=== PATIENT | female | born 1930 | race Caucasian/White ===

== ENCOUNTER 2016-09-30 13:43 | Inpatient (IN) | payer OTHER ==
[~2016-09-30] VITALS: Ht 154.9 cm; Wt 62.6 kg
[2016-09-30] MEDS ORDERED: HYDR12.55 PO (14:40)
[2016-09-30] MEDS ORDERED: PRVC/40 PO (14:40)
[2016-09-30] MEDS ORDERED: BRIM0.2S18 OPB (14:40)
[2016-09-30] MEDS ORDERED: LATA0.009 OPB (14:40)
[2016-09-30] MEDS ORDERED: TIMO0.5S35 OPB (14:40)
[2016-09-30] MEDS ORDERED: CARV25TA2 PO (14:40)
[2016-09-30] MEDS ORDERED: SODIUM CHLORIDE 0.9% 1000ML 1,000 ML IV STA (15:02)
--- NOTE | 2016-09-30 15:24 | DIAGNOSTIC IMAGING REPORT ---
CHEST ONE VIEW PORTABLE CLINICAL HISTORY: Weakness COMPARISON STUDY: No previous studies for comparison. FINDINGS: The heart is enlarged. There is aortic tortuosity. There are right basilar airspace opacities. In the proper clinical setting this could represent a pneumonitis. Clinical and radiographic follow-up is recommended. There is no failure. There are no pleural effusions.[ IMPRESSION: 1. Cardiomegaly 2. Right basal airspace opacities. Clinical and radiographic follow-up is recommended Electronically signed by: Elias Cortes M.D. 09/30/2016 3:23 PM Dictated Date/Time: 09/30/2016 3:22 PM
[2016-09-30 15:44] LABS: URINE APPEARANCE CLEAR (CLEAR); URINE BILIRUBIN NEG (NEG); URINE COLOR YELLOW; URINE NITRITE NEG (NEG); URINE SPECIFIC GRAVITY 1.009 (1.000-1.030); UROBILINOGEN NEG (NEG)
[2016-09-30 15:48] LABS: MANUAL MICROSCOPIC REQUIRED? NO; REVIEW REQ? NO
[2016-09-30 15:59] LABS: BASO % 0.4 %; BASO ABS # 0.03 K/uL (0-0.2); COMPLETE YES; EOS % 1.7 %; HEMATOCRIT 40.1 % (37-47); IG% 0.3 %; LYMPH % 27.8 %; LYMPH ABS # 1.97 K/uL (1.2-3.4); MEAN CELL VOLUME 96.9 fL (80-100); MEAN CORPUSCULAR HEMOGLOBIN 31.6 pg (25-34); MEAN CORPUSCULAR HGB CONC 32.7 g/dl (32-36); MEAN PLATELET VOLUME 9.6 fL (7.4-10.4); MONO % 9.3 %; NEUT % 60.5 %; PLATELET COUNT 266 K/uL (130-400); RED BLOOD COUNT 4.14 M/uL (4.2-5.4); WHITE BLOOD COUNT 7.08 K/uL (4.8-10.8)
[2016-09-30 16:11] LABS: PROTHROMBIN TIME (PATIENT) 10.8 SECONDS (9.0-12.0)
[2016-09-30 16:33] LABS: ALT/SGPT 18 U/L (12-78); BLOOD UREA NITROGEN 17 mg/dl (7-18); BUN/CREATININE RATIO 23.5 (10-20); CALCIUM 9.1 mg/dl (8.5-10.1); CARBON DIOXIDE 32 mmol/L (21-32); CHLORIDE 103 mmol/L (98-107); CREATININE 0.72 mg/dl (0.60-1.20); GLUCOSE 86 mg/dl (70-99); MAGNESIUM 2.4 mg/dl (1.8-2.4); POTASSIUM 3.9 mmol/L (3.5-5.1); SODIUM 141 mmol/L (136-145)
[2016-09-30 16:42] LABS: ALKALINE PHOSPHATASE 52 U/L (45-117); AST/SGOT 16 U/L (15-37); CKMB/CK RATIO 2.8 (0-3.0)
[2016-09-30] MEDS ORDERED: LEVAQUIN 750MG / 150ML D5W IV STA (17:36)
[2016-09-30] MEDS ORDERED: HydrALAZINE HCL 20 MG/ML VIAL IV. STA (17:36)
--- NOTE | 2016-09-30 18:39 | DIAGNOSTIC IMAGING REPORT ---
CT SCAN OF THE BRAIN WITHOUT IV CONTRAST CLINICAL HISTORY: Headache. Left-sided numbness. COMPARISON STUDY: No priors. TECHNIQUE: Unenhanced axial CT scan of the brain is performed from the vertex to the skull base. CT DOSE: 537.48 mGy.cm FINDINGS: Brain parenchyma: There are age-related involutional changes noting mild subcortical and periventricular microangiopathic change. A 3.5 cm arachnoid cyst is incidentally noted in the anterior left temporal fossa. This causes mild mass effect on the adjacent temporal lobe parenchyma. There is no hemorrhage, midline shift, or evidence of acute territorial ischemia by CT criteria. Greco-white matter is preserved. No extra-axial fluid collection is seen. Ventricles, sulci, cisterns: Prominent secondary to involutional change. Intracranial vasculature: There is atherosclerotic calcification of the cavernous carotid and vertebral arteries. Calvarium: Unremarkable. Sinuses and mastoids: The visualized paranasal sinuses are clear. The mastoid air cells are well pneumatized. Orbits: The bony orbits are grossly intact. There are bilateral ocular lens implants. IMPRESSION: There is no hemorrhage, mass effect, or evidence of acute territorial ischemia by CT criteria. Electronically signed by: Lopez Darnell M.D. 09/30/2016 6:38 PM Dictated Date/Time: 09/30/2016 6:36 PM
[2016-09-30] MEDS ORDERED: MoRPHine SULFATE 2 MG/ML CARP IV PRN (19:30)
[2016-09-30] MEDS ORDERED: ACETAMINOPHEN 325 MG TAB PO PRN (19:30)
[2016-09-30] MEDS ORDERED: ALUMINUM/MAGNESIUM/SIMETH (MAALOX MAX) 30 ML UDC PO PRN (19:30)
[2016-09-30] MEDS ORDERED: HydrALAZINE HCL 20 MG/ML VIAL IV. PRN (19:30)
[2016-09-30] MEDS ORDERED: MAGNESIUM HYDROXIDE SUSP 30 ML UDC PO PRN (19:30)
[2016-09-30] MEDS ORDERED: ZOLPIDEM TARTRATE 5 MG TAB PO PRN (19:30)
[2016-09-30] MEDS ORDERED: POLYETHYLENE (MIRALAX) 17 GM PACK PO PRN (19:30)
[2016-09-30] MEDS ORDERED: ONDANSETRON INJ 2 MG/ML 2 ML VIAL IV PRN (19:30)
[2016-09-30] MEDS ORDERED: GUAIFENESIN SUGAR FREE 200 MG/10 ML UDC PO PRN (20:15)
[2016-09-30 20:32] VITALS: BP 89/53; PULSE 80; TEMP 37.2; O2SAT 97; Ht 154.9 cm; Wt 62.6 kg
[2016-09-30] MEDS: LATANOPROST 0.005% OP SOLN 2.5 ML BTL OPB SCH (21:34)
[2016-09-30] MEDS: CARVEDILOL 25 MG TAB PO SCH (21:35)
[2016-09-30] MEDS: ASPIRIN 325 MG ECTAB PO SCH (21:36)
[2016-09-30] MEDS: ATORVASTATIN 40 MG TAB PO SCH (21:37)
[2016-09-30 21:40] VITALS: BP 158/80; PULSE 77
--- NOTE | 2016-09-30 21:45 | EMERGENCY ROOM VISIT NOTE ---
History Report prepared by Anita: Julieth Segundo Under the Supervision of: Dr. Maciel Beaulieu M.D. First contact with patient: 14:44 Chief Complaint: HYPOTENSION Stated Complaint: UNSTABLE BLOOD PRESSURE-UP/DOWN History of Present Illness The patient is an 86 year old female who presents to the Emergency Room with complaints of an episode of fluctuating blood pressures starting this morning. She reports that she gets really dizzy and is uneasy on her feet. She sates that it doesn't feel like the room is spinning around her, but rather that she is off balance. The patient complains of a headache, cough, weakness, dry mouth , diaphoresis, and her eyes feeling abnormal. She does note that she gets shots and drops in her eyes regularly. She reports that she has not missed any of her blood pressure medications or taken extras. The patient does note pain treated recently with doxycycline for pneumonia by her primary physician. She still has a cough. The patient denies any chest pain, shortness of breath, new back pain, urinary symptoms, change in appetite, melena, hematochezia, and numbness or tingling in her arms and legs. Source of History: patient Onset: this morning Position: other Quality: other (global) Timing: other (episode) Associated Symptoms: + headache, + diaphoresis, + cough, + weakness, No chest pain, No SOB, No back pain, No melena, No hematochezia, No urinary symptoms Note: The patient complains of being dizzy, dry mouth, eyes feeling abnormal and uneasy on her feet. The patient denies a change in appetite and numbness or tingling in her arms and legs. Review of Systems See HPI for pertinent positives and negatives. A total of ten systems were reviewed and were otherwise negative. Past Medical & Surgical Medical Problems: (1) Hypertension (2) Hypertensive crisis Family History No pertinent family history Social History Smoking Status: Never Smoker Drug Use: none Housing Status: lives with family Current/Historical Medications Scheduled Brimonidine Tartrate (Brimonidine Tartrate), 1 DROP OPB DAILY Carvedilol (Coreg), 25 MG PO DAILY Hydrochlorothiazide (Hydrochlorothiazide), 12.5 MG PO QAM Latanoprost (Xalatan 0.005% Oph Marni), 1 DROPS OPB BID Pravastatin Sod (Pravastatin Sodium), 40 MG PO DAILY Timolol Maleate (Ophth) (Timoptic), 1 DROPS OPB DAILY Allergies Coded Allergies: No Known Allergies (Unverified , 09/30/16) Physical Exam Vital Signs Date Time Temp Pulse Resp B/P (MAP) Pulse Ox O2 Delivery O2 Flow Rate FiO2 09/30/16 19:15 76 09/30/16 18:10 69 20 207/73 95 Room Air 09/30/16 17:53 66 20 244/119 94 Room Air 09/30/16 15:55 61 18 216/77 97 Room Air 09/30/16 15:55 62 18 216/77 96 Room Air 61 213/83 70 222/86 09/30/16 15:16 95 Room Air 09/30/16 14:17 63 21 205/86 93 Room Air 09/30/16 14:16 67 09/30/16 14:02 37.0 66 20 192/84 97 Room Air Physical Exam GENERAL: Awake, alert, well-appearing, in no distress HENT: Normocephalic, atraumatic. Oropharynx unremarkable. EYES: Normal conjunctiva. Sclera non-icteric. NECK: Supple. No nuchal rigidity. FROM. No JVD. RESPIRATORY: Clear to auscultation. CARDIAC: Regular rate, normal rhythm. Systolic injection murmur. Extremities warm and well perfused. Pulses equal. ABDOMEN: Soft, non-distended. No tenderness to palpation. No rebound or guarding. No masses. RECTAL: Deferred. MUSCULOSKELETAL: Chest examination reveals no tenderness. The back is symmetrical on inspection without obvious abnormality. There is no CVA tenderness to palpation. No joint edema. LOWER EXTREMITIES: Calves are equal size bilaterally and non-tender. No edema. No discoloration. NEURO: Normal sensorium. No sensory or motor deficits noted. SKIN: No rash or jaundice noted. Medical Decision & Procedures ER Provider Diagnostic Interpretation: Radiology results as stated below per my review and radiologist interpretation: CHEST ONE VIEW PORTABLE CLINICAL HISTORY: Weakness COMPARISON STUDY: No previous studies for comparison. FINDINGS: The heart is enlarged. There is aortic tortuosity. There are right basilar airspace opacities. In the proper clinical setting this could represent a pneumonitis. Clinical and radiographic follow-up is recommended. There is no failure. There are no pleural effusions.[ IMPRESSION: 1. Cardiomegaly 2. Right basal airspace opacities. Clinical and radiographic follow-up is recommended Electronically signed by: Elias Cortes M.D. 09/30/2016 3:23 PM Dictated Date/Time: 09/30/2016 3:22 PM Laboratory Results 09/30/16 15:35 Red Blood Count 4.14, Mean Corpuscular Volume 96.9, Mean Corpuscular Hemoglobin 31.6, Mean Corpuscular Hemoglobin Concent 32.7, Mean Platelet Volume 9.6, Neutrophils (%) (Auto) 60.5, Lymphocytes (%) (Auto) 27.8, Monocytes (%) (Auto) 9.3, Eosinophils (%) (Auto) 1.7, Basophils (%) (Auto) 0.4, Neutrophils # (Auto) 4.28, Lymphocytes # (Auto) 1.97, Monocytes # (Auto) 0.66, Eosinophils # (Auto) 0.12, Basophils # (Auto) 0.03 09/30/16 15:35 Test 09/30/16 15:29 09/30/16 15:35 Urine Color YELLOW Urine Appearance CLEAR (CLEAR) Urine pH 6.0 (4.5-7.5) Urine Specific [place] 1.009 (1.000-1.030) Urine Protein NEG (NEG) Urine Glucose (UA) NEG (NEG) Urine Ketones NEG (NEG) Urine Occult Blood NEG (NEG) Urine Nitrite NEG (NEG) Urine Bilirubin NEG (NEG) Urine Urobilinogen NEG (NEG) Urine Leukocyte Esterase SMALL (NEG) Urine WBC (Auto) 1-5 /hpf (0-5) Urine RBC (Auto) 0-4 /hpf (0-4) Urine Hyaline Casts (Auto) 0 /lpf (0-5) Urine Epithelial Cells (Auto) 5-10 /lpf (0-5) Urine Bacteria (Auto) NEG (NEG) White Blood Count 7.08 K/uL (4.8-10.8) Red Blood Count 4.14 M/uL (4.2-5.4) Hemoglobin 13.1 g/dL (12.0-16.0) Hematocrit 40.1 % (37-47) Mean Corpuscular Volume 96.9 fL (80-100) Mean Corpuscular Hemoglobin 31.6 pg (25-34) Mean Corpuscular Hemoglobin Concent 32.7 g/dl (32-36) Platelet Count 266 K/uL (130-400) Mean Platelet Volume 9.6 fL (7.4-10.4) Neutrophils (%) (Auto) 60.5 % Lymphocytes (%) (Auto) 27.8 % Monocytes (%) (Auto) 9.3 % Eosinophils (%) (Auto) 1.7 % Basophils (%) (Auto) 0.4 % Neutrophils # (Auto) 4.28 K/uL (1.4-6.5) Lymphocytes # (Auto) 1.97 K/uL (1.2-3.4) Monocytes # (Auto) 0.66 K/uL (0.11-0.59) Eosinophils # (Auto) 0.12 K/uL (0-0.5) Basophils # (Auto) 0.03 K/uL (0-0.2) RDW Standard Deviation 46.8 fL (36.4-46.3) RDW Coefficient of Variation 13.3 % (11.5-14.5) Immature Granulocyte % (Auto) 0.3 % Immature Granulocyte # (Auto) 0.02 K/uL (0.00-0.02) Prothrombin Time 10.8 SECONDS (9.0-12.0) Prothromb Time International Ratio 1.0 (0.9-1.1) Activated Partial Thromboplast Time 24.9 SECONDS (21.0-31.0) Partial Thromboplastin Ratio 1.0 Anion Gap 6.0 mmol/L (3-11) Est Creatinine Clear Calc Drug Dose 50.3 ml/min Estimated GFR () 89.1 Estimated GFR (Non- 76.9 BUN/Creatinine Ratio 23.5 (10-20) Calcium Level 9.1 mg/dl (8.5-10.1) Magnesium Level 2.4 mg/dl (1.8-2.4) Total Bilirubin 0.6 mg/dl (0.2-1) Direct Bilirubin 0.2 mg/dl (0-0.2) Aspartate Amino Transf (AST/SGOT) 16 U/L (15-37) Alanine Aminotransferase (ALT/SGPT) 18 U/L (12-78) Alkaline Phosphatase 52 U/L (45-117) Total Creatine Kinase 40 U/L (26-192) Creatine Kinase MB 1.1 ng/ml (0.5-3.6) Creatine Kinase MB Ratio 2.8 (0-3.0) Troponin I < 0.015 ng/ml (0-0.045) Total Protein 7.0 gm/dl (6.4-8.2) Albumin 3.6 gm/dl (3.4-5.0) Lipase 305 U/L (73-393) Thyroid Stimulating Hormone (TSH) 1.070 uIu/ml (0.300-4.500) Laboratory results reviewed by me Medications Administered Medications (Trade) Dose Ordered Sig/Buzz Route Start Time Stop Time Status Last Admin Dose Admin Sodium Chloride 1,000 ml @ 125 mls/hr Q8H STAT IV 09/30/16 15:02 09/30/16 20:55 DC 09/30/16 15:02 125 MLS/HR Levofloxacin (Levaquin / D5W) 750 mg NOW STAT IV 09/30/16 17:36 09/30/16 17:37 DC 09/30/16 17:36 750 MG Hydralazine HCl (HydrALAZINE INJ) 10 mg NOW STAT IV. 09/30/16 17:36 09/30/16 17:37 DC 09/30/16 17:36 10 MG Polyethylene (Miralax Powder Packet) 17 gm DAILY PRN PO 09/30/16 19:30 10/30/16 19:29 09/30/16 20:55 17 GM ECG Indication: other (dizziness) Rate (beats per minute): 61 Rhythm: sinus rhythm Findings: 1st degree AV block, no acute ischemic change, no ectopy, other (LVH) ED Course 1458: The patient was evaluated in room C2B. A complete history and physical exam was performed. 1502: Ordered NSS 1000 ml @ 125 mls/hr IV. 1736: Ordered Hydralazine HCl 10 mg IV, Levofloxacin 750 mg IV. 1751: Discussed the patient's case with Dr. Chairez. The patient will be evaluated for further treatment and disposition. Medical Decision Medication Reconciliation: I attest that I have personally reviewed the patient' s current medication list Blood pressure screening: Patient was found to have an elevated blood pressure and was referred to their primary doctor for recheck and further treatment. Triage Nursing notes reviewed. The patient's presentation and history were concerning for blood pressure problems and recent pneumonia. Etiologies such as hypertensive emergency, benign hypertension, cardiovascular pathology, pneumonia, pheochromocytoma, electrolyte abnormality, renal disease, endorgan damage, intracranial bleeding, as well as others were entertained. The patient was evaluated. Neurologically she was intact. ECG was unremarkable. Blood work was obtained. The patient was hydrated. Her blood pressure was steadily increasing. She had blood pressure reached 230 systolic. The patient had no elevation of her white blood cell count. Her chemistries and urinalysis were unremarkable. She had an abnormal chest x-ray. The patient was given IV Levaquin and also IV hydralazine. Further evaluation and management will be necessary in the hospital. The patient was in agreement. Consultation was made with internal medicine. The patient was evaluated in the Emergency Room for further management. Consults Time Called: [phone] Consulting Physician: Dr. Chairez Returned Call: [phone] Discussed the patient's case with Dr. Chairez. The patient will be evaluated for further treatment and disposition. Impression Primary Impression: Hypertensive emergency Additional Impression: Pneumonia Scribe Attestation The scribe's documentation has been prepared under my direction and personally reviewed by me in its entirety. I confirm that the note above accurately reflects all work, treatment, procedures, and medical decision making performed by me. Departure Information Dispostion Being Evaluated By Hospitalist Referrals Lopez Padron M.D. (PCP) Patient Instructions My [facility] Problem Qualifiers
--- NOTE | 2016-09-30 22:44 | HISTORY & PHYSICAL EXAMINATION ---
DATE OF ADMISSION: 09/30/2016 CHIEF COMPLAINT: Cough. HISTORY OF PRESENT ILLNESS: The patient is an 86-year-old pleasant [employer] lady who about a week ago developed cough and fever, went to an outside urgent care facility and was getting a course of doxycycline and prednisone. The patient's cough slightly improved but then patient came back today to the ER with recurrent cough with productive sputum, also had weakness and headache. The patient checked her blood pressure at home and she found that it is fluctuating significantly, systolic from 80-210. In the ED, the patient's blood pressure systolic was persistently more than 200 and sometimes more than 230. CT scan of head was done and was negative for intracranial bleed. The patient will be admitted for further evaluation and management. REVIEW OF SYSTEMS: Admits to dizziness, but denies any headache. Denies any chest pain or palpitation. Admits to cough and slight shortness of breath. Denies any focal weakness, tingling, numbness. Denies any ataxia or abnormal gait. Denies any abdominal pain. Denies any urinary symptoms. Denies any blood in stool or diarrhea. Rest of the review of systems is negative. PAST MEDICAL HISTORY: Hypertension. FAMILY HISTORY: Noncontributory. SOCIAL HISTORY: The patient is an [employer], does not smoke or drink. Lives with family. CURRENT MEDICATIONS AT HOME: Carvedilol 25 mg p.o. b.i.d., hydrochlorothiazide 12.5 mg p.o. daily, pravastatin 40 mg p.o. daily, timolol eyedrops, Xalatan eyedrops and brimonidine eyedrops. ALLERGIES: No known allergy. PHYSICAL EXAMINATION: VITAL SIGNS: Temperature 37, pulse 69, respirations 20, blood pressure ranging from 192-244 systolic and diastolic ranging from 86-119, pulse ox is 94, respirations on room air. GENERAL: The patient is average built, appears to be not in acute distress. HEENT: No jaundice. No pallor. Wet mucous membranes. NECK: Supple. HEART: S1, S2 normal. No gallop, rub or murmur. LUNGS: Clear to auscultation bilaterally. Normal chest wall expansion. ABDOMEN: Soft, nontender, nondistended. NEUROLOGIC: Awake, alert, oriented to time, place, and person. Moves all extremities. Sensation intact. Cranial nerves II-XII appear to be intact. SKIN: No rash or erythema. PSYCHIATRIC: Appropriate thought and process of thinking. IMAGING DATA: Chest x-ray showed right basilar airspace opacity. LABORATORY DATA: White blood cell count 7, hemoglobin 13, platelet count 266. BUN is 17, creatinine 0.7. Urine was negative for infection. ASSESSMENT: 1. Right lower lobe pneumonia, failed outpatient antibiotics. 2. Hypertensive crisis. 3. Generalized weakness. 4. Dizziness, likely due to hypertension. PLAN: 1. Admit patient to telemetry. 2. The patient currently is asymptomatic. We will aim for a blood pressure 170/90. We will initiate her carvedilol and hydrochlorothiazide tonight and will start her on amlodipine tomorrow. We will keep her on hydralazine 20 mg IV q. 6 hours p.r.n. systolic blood pressure more than 180. 3. Currently, she is neurologically intact with no dizziness or ataxia. I examined her gait and there was on instability. If she develops any neurologic symptoms, then MRI should be obtained. At this point, we will give her aspirin empiric for any underlying stroke and switch her pravastatin to Lipitor. Current systolic pressure after intervention is 170/80, which is at this point the target. Gradually from tomorrow, we can target for lower pressure. 4. SCD boot for DVT prophylaxis. We will avoid heparin at this point due to the very high pressure, but can be restarted as soon as her pressure is under control. 5. Levofloxacin for pneumonia with guaifenesin. Although imaging finding could be her residual pneumonia that has been treated as an outpatient, but because she is still coughing, we would like to go ahead and treat despite the lack of white blood cell count or fever.
[2016-09-30 23:42] VITALS: BP_SYST 157; BP_SYST 168; BP_SYST 172; BP_DIAS 69; BP_DIAS 78; BP_DIAS 81; PULSE 76; PULSE 80; PULSE 82; TEMP 37.1; O2SAT 93
[2016-10-01] VITALS (8 sets, daily range): BP systolic 124–178; BP diastolic 71–81; PULSE 67–72; TEMP 36.4–37.1; O2SAT 95–99
[2016-10-01] MEDS: CARVEDILOL 25 MG TAB PO SCH (08:19)
[2016-10-01] MEDS: ASPIRIN 325 MG ECTAB PO SCH (08:19)
[2016-10-01] MEDS: ATORVASTATIN 40 MG TAB PO SCH (08:19)
[2016-10-01] MEDS: AMLODIPINE BESYLATE 5 MG TAB PO SCH (08:19)
[2016-10-01] MEDS: HYDROCHLOROTHIAZIDE 25 MG TAB PO SCH (08:20)
[2016-10-01] MEDS: LACTOBACILLUS ACIDOPHILUS 1 GM PACK PO SCH ×3 (08:21→17:09)
[2016-10-01] MEDS: LATANOPROST 0.005% OP SOLN 2.5 ML BTL OPB SCH (09:00)
[2016-10-01] MEDS ORDERED: PRAVASTATIN SOD 40 MG TAB PO SCH (09:00)
[2016-10-01] MEDS ORDERED: TIMOLOL MALEATE 0.5% OP SOLN 5 ML BTL OPB SCH (09:00)
[2016-10-01] MEDS ORDERED: BRIMONIDINE TARTRATE 0.2% 5ML OPB SCH (09:00)
[2016-10-01] MEDS: LEVOFLOXACIN / D5W 500 MG in PREMIXED IN D5W 100 ML IV SCH (12:33)
--- NOTE | 2016-10-01 15:01 | DIAGNOSTIC IMAGING REPORT ---
DOPPLER ULTRASOUND OF THE RENAL ARTERIES CLINICAL HISTORY: Hypertension. COMPARISON STUDY: No priors. TECHNIQUE: Doppler sonography of the renal arteries was performed to assess renal artery stenosis. Images are reviewed in the transverse and longitudinal planes. FINDINGS: The kidneys demonstrate mild cortical atrophy and are without hydronephrosis. The right kidney measures 11.7 cm in length and the left kidney measures 10.9 cm in length. On the right, intrarenal arterial resistive indices range from 0.63 to 0.72. Intrarenal arterial waveforms are normal with brisk upstrokes. The right renal arterial waveform is normal, and velocities within the right renal artery measure up to 114 cm/sec. The right renal vein is patent. On the left, intrarenal arterial resistive indices range from 0.70 to 0.78. Intrarenal arterial waveforms are normal with brisk upstrokes. The left renal arterial waveform is normal, and velocities within the left renal artery measure up to 110 cm/sec. The left renal vein is patent. The abdominal aorta is patent. Velocities within the abdominal aorta measure up to 97 cm/s. Survey images of the liver show scattered cysts measure up to 4.2 cm. IMPRESSION: There is no sonographic evidence of renal artery stenosis. Electronically signed by: Lopez Darnell M.D. 10/01/2016 3:00 PM Dictated Date/Time: 10/01/2016 2:58 PM
[2016-10-01] MEDS ORDERED: TEMAZEPAM 7.5 MG CAP PO PRN (15:45)
[2016-10-01] MEDS ORDERED: ALPRAZOLAM 0.25 MG TAB PO PRN (15:45)
--- NOTE | 2016-10-01 15:46 | Progress Note ---
Subjective Date of Service: Oct 01, 2016. Subjective Pt evaluation today including: conversation w/ patient, conversation w/ family , physical exam, chart review, lab review, review of studies, conversation w/ employee relations consultant, review of inpatient medication list Feeling very anxious, last night was having poor sleep, insomnia Cough and sputum, Problem List Medical Problems: (1) Hypertensive emergency Status: Acute (2) Pneumonia Status: Acute Review of Systems Constitutional: No fever, No chills, No sweats, No weight loss, No weakness, No fatigue, No problem reported Eyes: No worsening of vision, No eye pain, No redness, No discharge, No diplopia ENT: No hearing loss, No unusual epistaxis, No nasal symptoms, No sore throat, No tinnitus, No dental problems, No trouble swallowing Respiratory: + cough, + sputum, No wheezing, No shortness of breath, No dyspnea on exertion, No dyspnea at rest, No hemoptysis Cardiac: No chest pain, No orthopnea, No PND, No edema, No claudication, No palpitations Abdomen: No pain, No nausea, No vomiting, No diarrhea, No constipation Musculoskeletal: No joint pain, No muscle pain, No swelling, No calf pain Female : No dysuria, No urinary frequency, No hematuria, No incontinence, No abnormal vaginal bleeding, No vaginal discharge Neurologic: No memory loss, No paralysis, No weakness, No numbness/tingling, No vertigo, No balance problems Psychiatric: + anxiety, + insomnia, No depression symptoms, No anhedonism, No substance abuse Heme: No abnormal bleeding/bruising, No clotting problems, No swollen lymph nodes, No night sweats Endo: No fatigue, No excessive thirst, No excessive urination Skin: No rash, No itch, No new/changing skin lesions, No color change, No bleeding Objective Vital Signs Date Time Temp Pulse Resp B/P (MAP) Pulse Ox O2 Delivery O2 Flow Rate FiO2 10/01/16 12:00 36.4 70 16 129/77 (94) 97 10/01/16 07:39 37.1 71 16 175/72 (106) 96 165/72 (103) 149/74 (99) 10/01/16 06:15 72 132/73 (92) 10/01/16 04:07 67 178/77 (110) 10/01/16 04:00 Room Air 10/01/16 03:58 37.1 69 20 172/81 (111) 96 Room Air 10/01/16 00:00 Room Air 09/30/16 23:42 37.1 76 18 172/78 (109) 93 Room Air 80 168/69 (102) 82 157/81 (106) 09/30/16 21:40 77 18 158/80 (106) 09/30/16 20:32 37.2 80 18 89/53 97 Room Air 09/30/16 19:51 85 18 176/82 97 Room Air 09/30/16 19:15 76 09/30/16 18:10 69 20 207/73 95 Room Air 09/30/16 17:53 66 20 244/119 94 Room Air 09/30/16 15:55 61 18 216/77 97 Room Air 09/30/16 15:55 62 18 216/77 96 Room Air 61 213/83 70 222/86 Physical Exam General Appearance: WD/WN, no apparent distress, + pertinent finding (pleasant but anxious) Eyes: normal inspection, PERRL, EOMI, sclerae normal ENT: normal ENT inspection, hearing grossly normal, pharynx normal Neck: supple, no adenopathy, thyroid normal, no JVD, no carotid bruits, trachea midline Respiratory/Chest: chest non-tender, normal breath sounds, no respiratory distress, no accessory muscle use, + decreased breath sounds, + rhonchi, + wheezing Cardiovascular: regular rate, rhythm, no edema, no gallop, no JVD, no murmur Abdomen: normal bowel sounds, non tender, soft, no organomegaly, no pulsatile mass Extremities: normal range of motion, non-tender, normal inspection, no pedal edema, no calf tenderness, normal capillary refill, pelvis stable Neurologic/Psychiatric: life educator II-XII nml as tested, no motor/sensory deficits, alert, normal mood/affect, oriented x 3 Skin: normal color, warm/dry, no rash Lymphatic: no adenopathy Laboratory Results Last 24 Hours Test 10/01/16 08:39 Random Cortisol 18.03 mcg/dl Assessment and Plan 86-year-old white female admitted because of Right lower lobe pneumonia, failed outpatient antibiotics and hypertension crisis Right lower lobe pneumonia, failed outpatient antibiotics stable hypertension crisis better hx of hypertension Generalized weakness better Dizziness, likely due to hypertension resolved Continue carvedilol and hydrochlorothiazide and amlodipine Has ordered renal artery ultrasound, renin, Aldactone, metanephrine faction, cortisone levels For possible difficult treated hypertension Continue antibiotics nebulizer treatment, follow-up culture sensitivities Anxiety will give Xanax Insomnia we will give Restoril SCD boot for DVT prophylaxis. Okay to give heparin now Continued [facility] stay due to: multiple IV medications needed Discharge planning: home
[2016-10-01] MEDS ORDERED: NURSING VERBAL MED ORDER ONE (16:45)
[2016-10-01] MEDS: BRIMONIDINE TARTRATE 0.2% 5ML OPB SCH (20:18)
[2016-10-01] MEDS: TIMOLOL MALEATE 0.5% OP SOLN 5 ML BTL OPB SCH (20:20)
[2016-10-01] MEDS ORDERED: LATANOPROST 0.005% OP SOLN 2.5 ML BTL OPB SCH (21:00)
[2016-10-02] VITALS (7 sets, daily range): BP systolic 108–154; BP diastolic 61–85; PULSE 66–82; TEMP 36.6–36.9; O2SAT 92–97
[2016-10-02] MEDS: ATORVASTATIN 40 MG TAB PO SCH (07:42)
[2016-10-02] MEDS: HYDROCHLOROTHIAZIDE 25 MG TAB PO SCH (07:42)
[2016-10-02] MEDS: CARVEDILOL 25 MG TAB PO SCH (07:42)
[2016-10-02] MEDS: ASPIRIN 325 MG ECTAB PO SCH (07:42)
[2016-10-02] MEDS: AMLODIPINE BESYLATE 5 MG TAB PO SCH (07:42)
[2016-10-02] MEDS: LACTOBACILLUS ACIDOPHILUS 1 GM PACK PO SCH ×2 (07:43→11:30)
[2016-10-02] MEDS: TIMOLOL MALEATE 0.5% OP SOLN 5 ML BTL OPB SCH (07:43)
[2016-10-02] MEDS: BRIMONIDINE TARTRATE 0.2% 5ML OPB SCH (07:43)
[2016-10-02] MEDS: LEVOFLOXACIN / D5W 500 MG in PREMIXED IN D5W 100 ML IV SCH (11:30)
[2016-10-02] MEDS ORDERED: LCTXP PO (12:54)
[2016-10-02] MEDS ORDERED: NRV5 PO (12:54)
[2016-10-02] MEDS ORDERED: RBTUDL10 PO (12:54)
[2016-10-02] MEDS ORDERED: LEVO1TAB35 PO (12:54)
--- NOTE | 2016-10-02 12:55 | Discharge Instructions ---
Discharge Instructions Date of Service Oct 02, 2016. Admission Reason for Admission: Hypertensive Crisis Discharge Discharge Diagnosis / Problem: pna Discharge Goals Goal(s): Decrease discomfort, Improve function, Increase independence, Improve disease control, Improve nutritional status, Learn about illness, Diagnostic testing, Therapeutic intervention, Prevent Disease Progression, Specific goals Activity Recommendations Activity Limitations: resume your previous activity . Instructions / Follow-Up Instructions / Follow-Up you have Right lower lobe pneumonia, you have severe hypertension your new medicine includes Amlodipine you need to follow up with Dr. Padron as scheduled you need a blood pressure machine and check blood pressure 2 x a day, reported to pcp or go to emergency if blood pressure >200 - take medication as instructed, never overdose or any misuse, or take with alcohol, because misuse of medicine may cause organ damage or , call your primary care physician if have questions of medicaitons. - call your primary care physician OR go to local emergency room if has any fever/chill, chest pain, shortness of breathing, nausea/vomiting/abdominal pain , facial droop/slurry speech/local weakness, or if has any questions. - fall precaution - diet as instructed - you need to follow up with your subspecialist - you should understand that it is important to follow up the above instruction , and "not following the above instruction" may cause delayed or missed care of your medical conditions which may cause permanent organ damage and even . Current Hospital Diet Patient's current hospital diet: Regular Diet Discharge Diet Recommended Diet: AHA Diet (Heart Healthy), Low Sodium Diet (2gm Na) Procedures Procedures Performed: no Pending Studies Studies pending at discharge: no Medical Emergencies . Who to Call and When: Medical Emergencies: If at any time you feel your situation is an emergency, please call 911 immediately. . Non-Emergent Contact Non-Emergency issues call your: Primary Care Provider . . "Provider Documentation" section prepared by Manuel Alaniz. . VTE Core Measure Inpt VTE Proph given/why not?: SCD's
--- NOTE | 2016-10-02 15:08 | Discharge Summary ---
Discharge Summary Date of Service Oct 02, 2016. Discharge Summary Admission Date: Sep 30, 2016 at 19:35 Discharge Date: Oct 02, 2016 Principal Diagnosis: Right lower lobe pneumonia, Problems/Secondary Diagnoses: severe hypertension Procedures: No Consultations: No Medication Reconciliation New Medications: Levofloxacin (Levaquin) 750 Mg Tab 750 MG PO DAILY for 5 Days, #5 TAB Amlodipine Besylate (Amlodipine Besylate) 5 Mg Tab 10 MG PO QAM for 30 Days, #60 TAB Guaifenesin (Guaifenesin) 200 Mg/10 Ml Syrp 200 MG PO Q6H PRN for Cough for 5 Days Lactobacillus Acidophilus (Lactinex Granules) 1 Gm Pack 1 GM PO TIDM for 5 Days Continued Medications: Brimonidine Tartrate (Brimonidine Tartrate) 0.2 % Marni 1 DROP OPB DAILY Carvedilol (Coreg) 25 Mg Tab 25 MG PO DAILY Hydrochlorothiazide (Hydrochlorothiazide) 12.5 Mg Tab 12.5 MG PO QAM Latanoprost (Xalatan 0.005% Oph Marni) 0.005 % Marni 1 DROPS OPB BID Pravastatin Sod (Pravastatin Sodium) 40 Mg Tab 40 MG PO DAILY Timolol Maleate (Ophth) (Timoptic) 0.5 % Marni 1 DROPS OPB DAILY Discharge Exam Continue doing well, family much relaxed, she did report has good sleep last night Review of Systems: Constitutional: No fever, No chills, No sweats, No weight loss, No weakness , No fatigue, No problem reported Eyes: No worsening of vision, No eye pain, No redness, No discharge, No diplopia, No problem reported ENT: No hearing loss, No unusual epistaxis, No nasal symptoms, No sore throat, No tinnitus, No dental problems, No trouble swallowing, No problem reported Respiratory: + cough, No sputum, No wheezing, No shortness of breath, No dyspnea on exertion, No dyspnea at rest, No hemoptysis, No problem reported Cardiovascular: No chest pain, No orthopnea, No PND, No edema, No claudication, No palpitations, No problem reported Abdomen: No pain, No nausea, No vomiting, No diarrhea, No constipation, No GI bleeding, No problem reported Musculoskeletal: No joint pain, No muscle pain, No swelling, No calf pain, No problem reported Genitourinary - Female: No dysuria, No urinary frequency, No urinary urgency , No urinary incontinence, No urinary retention, No hematuria, No dysmenorrhea, No menorrhagia, No metrorrhagia, No rash, No vaginal bleeding, No vaginal discharge, No vaginal itching, No vulvodynia, No , No problem reported Neurologic: No memory loss, No paralysis, No weakness, No numbness/tingling , No vertigo, No balance problems, No problem reported Psychiatric: No depression symptoms, No anhedonism, No anxiety, No insomnia , No substance abuse, No problem reported Endocrine: No fatigue, No excessive thirst, No excessive urination, No problem reported Hematologic / Lymphatic: No abnormal bleeding/bruising, No clotting problems , No swollen lymph nodes, No night sweats, No problem reported Integumentary: No rash, No itch, No new/changing skin lesions, No color change, No bleeding, No problem reported Physical Exam: General Appearance: WD/WN, no apparent distress Eyes: normal inspection, PERRL ENT: normal ENT inspection, hearing grossly normal Neck: supple, no adenopathy Respiratory/Chest: chest non-tender, normal breath sounds, no respiratory distress, + decreased breath sounds Cardiovascular: regular rate, rhythm, no edema, no gallop Abdomen / GI: normal bowel sounds, non tender, soft, no organomegaly, normal rectal exam Extremities: normal inspection, no calf tenderness, normal capillary refill , no pedal edema, normal range of motion 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, no motor/sensory deficits , normal mood/affect Skin: normal color, warm/dry Hospital Course 86-year-old white female admitted 09/30/2016 because of Right lower lobe pneumonia, failed outpatient antibiotics and hypertension crisis Right lower lobe pneumonia, failed outpatient antibiotics stable, has been on Levaquin, we'll continue for 5 days, added Robitussin hypertension crisis upon admission , better/resolved hx of hypertension, in taking medicine regularly blood pressure better controlled after adding in amlodipine Generalized weakness better Dizziness, likely due to hypertension resolved Continue carvedilol and hydrochlorothiazide and amlodipine , Has ordered renal artery ultrasound which was negative, labs sent included renin , Aldactone, metanephrine faction, cortisone levels For possible difficult treated hypertension, primary care physician please follow-up Continue antibiotics nebulizer treatment, follow-up culture sensitivities Anxiety was making Xanax Available, but patient did not really take it Insomnia was plan to give Restoril, but patient did not really take it Patient feel really relax after certain medication, however just want to let primary care physician know: she did not get any of the Restoril or Xanax during the hospitalization SCD boot for DVT prophylaxis. Okay to give heparin now Instructions / Follow-Up you have Right lower lobe pneumonia, you have severe hypertension your new medicine includes Amlodipine you need to follow up with Dr. Padron as scheduled you need a blood pressure machine and check blood pressure 2 x a day, reported to pcp or go to emergency if blood pressure >200 - take medication as instructed, never overdose or any misuse, or take with alcohol, because misuse of medicine may cause organ damage or , call your primary care physician if have questions of medicaitons. - call your primary care physician OR go to local emergency room if has any fever/chill, chest pain, shortness of breathing, nausea/vomiting/abdominal pain , facial droop/slurry speech/local weakness, or if has any questions. - fall precaution - diet as instructed - you need to follow up with your subspecialist - you should understand that it is important to follow up the above instruction , and "not following the above instruction" may cause delayed or missed care of your medical conditions which may cause permanent organ damage and even . Total Time Spent: Less than 30 minutes This includes examination of the patient, discharge planning, medication reconciliation, and communication with other providers. Discharge Instructions Please refer to the electronic Patient Visit Report (Discharge Instructions) for additional information. Additional Copies To Lopez Padron M.D.
[2016-10-02] MEDS ORDERED: SACCHAROMYCES BOUL (FLORASTOR) 250 MG CAP PO SCH (16:45)
[2016-10-02] MEDS ORDERED: LACTOBACILLUS ACIDOPHILUS (FLORANEX) TAB PO SCH (16:45)
== END 2016-10-02 16:34 | disposition home or self-care (01) | DRG 304 ==
LOC: C.EDB 13:44 → C.2T 19:35 → ENRESERV 20:04
PROVIDERS: ADMIT Internal Medicine; ATTEND Hospitalist
DX: I16.9 Hypertensive crisis, unspecified (principal); J18.9 Pneumonia, unspecified organism; I10 Essential (primary) hypertension; F41.9 Anxiety disorder, unspecified; G47.00 Insomnia, unspecified; R53.1 Weakness; Z79.899 Other long term (current) drug therapy